=== PATIENT | female | born 1995 | race Caucasian/White ===

== ENCOUNTER → 2016-04-23 | Outpatient (CLI) | payer BC ==
[~2016-04-23] MED LIST: Gadobutrol 10 mMOL/10 ML SDV IVPUSH STA; Gadobutrol 7.5 mMOL/7.5 ML SDV IVPUSH STA; Iopamidol 612 MG/ML 50 ML SDV IARTIC STA
--- NOTE | 2016-04-23 14:49 | CR ---
EXAMINATION: Fluoro guided right shoulder arthrogram. HISTORY: Shoulder pain. 719.41. TECHNIQUE/PROCEDURE: Written informed consent was obtained from the patient . Patient is not on aspi rin or other blood thinners. The site of the anterior rotator interval is marked under fluoroscopy. Under aseptic conditions usin g 1% lidocaine as local anesthesia 25-gauge needle was introduced into the joint space. A small amou nt of contrast test dose was injected which freely flowed into the joint space. Afterwards, 15 cc o f cocktail consisting of saline, gadolinium and local lidocaine including CT contrast was administer ed without difficulty. There was no passage of the contrast into the subacromial space. Most of the contrast is seen within the joint space and sub coracoid bursal region. IMPRESSION: Successful Fluoro guided right shoulder arthrogram without evidence for high-grade rotat or cuff tear.
--- NOTE | 2016-04-23 16:17 | MR ---
EXAMINATION: MRI arthrogram of the right shoulder HISTORY: Pain COMPARISON: Radiographs dated 04/04/2016 TECHNIQUE: Multiplanar and multisequence images obtained of the right shoulder following the intra-a rticular administration of diluted Gadavist. FINDINGS: The acromion is flat with a slight hook. The acromioclavicular joint appears normal. No s ignificant subacromial or subdeltoid fluid. The supraspinatus and infraspinatus tendons appear intac t. The long head biceps tendon is present within the bicipital groove with intact overlying subscapu faith tendon. The teres minor tendon appears normal. No muscular atrophy. The articular surfaces mirlande ear preserved. The glenoid labrum appears rounded however intact. Contrast is noted inferior to the joint with an indistinct humeral attachment of the inferior glenohumeral ligament. No abnormal bone marrow signal. IMPRESSION: 1. Humeral avulsion of the inferior glenohumeral ligament.
== END | disposition home or self-care (01) ==
LOC: MW.DI 10:23
PROVIDERS: ATTEND Orthopaedic Surgery
DX: S43.491A Other sprain of right shoulder joint, initial encounter (principal); M25.511 Pain in right shoulder
CPT/HCPCS: 23350; 73223; 77002; A9585; Q9967

== ENCOUNTER 2016-05-19 13:30 | Emergency (ER) | payer OTHER, BC ==
--- NOTE | 2016-05-19 13:56 | EDM.PDOC ---
ED HPI GENERAL MEDICAL PROBLEM - General Chief Complaint: Body Fluid Exposure Stated Complaint: EXPOSURE Time Seen by Provider: 05/19/16 13:43 - History of Present Illness INITIAL COMMENTS - FREE TEXT/NARRATIVE: HISTORY AND PHYSICAL: History of present illness: Patient is 21-year-old white female who presents with a concern of body fluid exposure this was in the form of blood and it splashed in her face no reported needlestick or other concern patient source protocol actuated Review of systems: As per history of present illness and below otherwise all systems reviewed and negative. Past medical history: As per history of present illness and as reviewed below otherwise noncontributory. Surgical history: As per history of present illness and as reviewed below otherwise noncontributory. Social history: No reported history of drug or alcohol abuse. Family history: As per history of present illness and as reviewed below otherwise noncontributory. Physical exam: Deferred Diagnostics: Per protocol Therapeutics: None Impression: #1 body fluid exposure Definitive disposition and diagnosis as appropriate pending reevaluation and review of above. - Related Data Allergies Allergy/AdvReac Type Severity Reaction Status Date / Time clindamycin Allergy UNKNOWN Verified 06/15/13 15:36 sulfamethoxazole Allergy UNKNOWN Verified 06/15/13 15:36 [From Bactrim] trimethoprim [From Bactrim] Allergy UNKNOWN Verified 06/15/13 15:36 Home Meds: Home Meds . [No Known Home Meds] 12/22/15 [History] Past Medical History - Past Health History Medical/Surgical History: Denies Medical/Surgical History Social & Family History - Tobacco Use Smoking Status *Q: Unknown Ever Smoked - Caffeine Use Caffeine Use: Reports: None - Recreational Drug Use Recreational Drug Use: No ED ROS GENERAL - Review of Systems Review Of Systems: ROS reveals no pertinent complaints other than HPI. ED EXAM, GENERAL - Physical Exam Exam: See Below (See dictation) Course - Orders/Labs/Meds Orders: Active Orders 24 hr Category Date Time Status HEPATITIS B SURFACE ANTIGEN [REF] Stat Lab 05/19/16 13:46 Ordered HEPATITIS B VIR DNA QUANT PCR [REF] Stat Lab 05/19/16 13:46 Ordered HEPATITIS C AB [REF] Stat Lab 05/19/16 13:46 Ordered HIV12 AG/AB 4TH GEN [CHEM] Stat Lab 05/19/16 13:46 Ordered Departure - Departure Time of Disposition: 13:55 Disposition: Home, Self-Care 01 Condition: good Clinical Impression: Patient exposure to body fluids Forms: ED Department Discharge Additional Instructions: The following information is given to patients seen in the emergency department who are being discharged to home. This information is to outline your options for follow-up care. We provide all patients seen in our emergency department with a follow-up referral. The need for follow-up, as well as the timing and circumstances, are variable depending upon the specifics of your emergency department visit. If you don't have a primary care physician on staff, we will provide you with a referral. We always advise you to contact your personal physician following an emergency department visit to inform them of the circumstance of the visit and for follow-up with them and/or the need for any referrals to a consulting specialist. The emergency department will also refer you to a specialist when appropriate. This referral assures that you have the opportunity for followup care with a specialist. All of these measure are taken in an effort to provide you with optimal care, which includes your followup. Under all circumstances we always encourage you to contact your private physician who remains a resource for coordinating your care. When calling for followup care, please make the office aware that this follow-up is from your recent emergency room visit. If for any reason you are refused follow-up, please contact the [facility] emergency department at and asked to speak to the emergency department charge nurse. Follow up primary medical doctor/employee health - My Orders Last 24 Hours: My Active Orders 05/19/16 13:46 HEPATITIS B SURFACE ANTIGEN [REF] Stat HEPATITIS B VIR DNA QUANT PCR [REF] Stat HEPATITIS C AB [REF] Stat HIV12 AG/AB 4TH GEN [CHEM] Stat - Assessment/Plan Last 24 Hours: My Active Orders 05/19/16 13:46 HEPATITIS B SURFACE ANTIGEN [REF] Stat HEPATITIS B VIR DNA QUANT PCR [REF] Stat HEPATITIS C AB [REF] Stat HIV12 AG/AB 4TH GEN [CHEM] Stat
[2016-05-19 15:52] VITALS: BP 115/69
== END 2016-05-19 14:19 | disposition home or self-care (01) ==
LOC: MW.ED 13:30
DX: Z77.21 Contact with and (suspected) exposure to potentially hazardous body fluids (principal); Z88.1 Allergy status to other antibiotic agents; Z88.2 Allergy status to sulfonamides
CPT/HCPCS: 36415; 86706; 86803; 87389; 99283

== ENCOUNTER 2021-05-10 13:07 | Inpatient (IN) | payer BC ==
[2021-05-10] MEDS ORDERED: Water For Irrigation,Sterile 1,000 ML Container IRR PRN (13:24)
[2021-05-10] MEDS ORDERED: Sodium Chloride 0.9% 2.5 ML Syringe FLUSH PRN (13:24)
[2021-05-10] MEDS ORDERED: Methylergonovine 0.2 MG/1 ML Amp IM PRN (13:24)
[2021-05-10] MEDS ORDERED: Carboprost Tromethamine 250 MCG/1 ML Amp IM PRN (13:24)
[2021-05-10] MEDS ORDERED: Lidocaine 1% 50 ML MDV INJECT PRN (13:24)
[2021-05-10] MEDS ORDERED: Misoprostol 200 MCG Tab PO PRN (13:24)
[2021-05-10] MEDS ORDERED: Terbutaline 1 MG/ML SDV SUBCUT PRN (13:24)
[2021-05-10] MEDS ORDERED: Sodium Chloride 0.9% 20 ML SDV IV PRN (13:24)
[2021-05-10] MEDS ORDERED: Misoprostol 25 MCG (1/4 of 100 MCG) Tab VAG PRN ×2 (13:24)
[2021-05-10] MEDS ORDERED: Sodium Chloride 0.9% 10 ML Syringe FLUSH PRN (13:24)
[2021-05-10] MEDS ORDERED: Butorphanol 1 MG/ML SDV IVPUSH PRN (13:24)
[2021-05-10] MEDS ORDERED: Tranexamic Acid 1,000 MG in Sodium Chloride 0.9% 100 ML IV PRN (13:24)
[2021-05-10] MEDS ORDERED: Oxytocin/0.9 % Sodium Chloride 30 UNIT/500 ML BAG IV SCH ×2 (13:30)
[2021-05-10] MEDS: Lactated Ringers 1,000 ML IV SCH ×2 (14:19→21:39)
[2021-05-10] MEDS ORDERED: Ampicillin 2 GM in Sodium Chloride 0.9% 100 ML IV ONE (14:30)
[2021-05-10] MEDS ORDERED: ePHEDrine 50 MG/ML SDV IVPUSH PRN (16:52)
[2021-05-10] MEDS ORDERED: Ropivacaine 200 MG in Premix Bag 1 BAG EPIDUR SCH (17:00)
[2021-05-10] MEDS: Ampicillin 1 GM in Sodium Chloride 0.9% 50 ML IV SCH ×2 (18:30→22:30)
[2021-05-10] MEDS: Ondansetron 4 MG/2 ML SDV IVPUSH PRN (21:00)
[2021-05-10] MEDS ORDERED: Ampicillin 1 GM Vial ONE (21:08)
[2021-05-10] MEDS ORDERED: Lidocaine 2% with EPINEPHrine 1:200,000 20 ML SDV ONE (21:25)
[2021-05-10] MEDS: ePHEDrine 50 MG/ML SDV IVPUSH PRN ×2 (22:27→23:55)
[2021-05-11] MEDS: ePHEDrine 50 MG/ML SDV IVPUSH PRN (00:01)
[2021-05-11] MEDS: Ondansetron 4 MG/2 ML SDV IVPUSH PRN (00:11)
[2021-05-11] MEDS ORDERED: Ondansetron 4 MG/2 ML SDV ONE (01:22)
[2021-05-11] MEDS ORDERED: Oxytocin 10 Units/1 ML SDV ONE (01:39)
[2021-05-11] MEDS ORDERED: Lidocaine 2% with EPINEPHrine 1:200,000 20 ML SDV ONE (01:42)
[2021-05-11] MEDS ORDERED: fentaNYL 100 MCG/2 ML SDV ONE (01:45)
[2021-05-11] MEDS ORDERED: Midazolam 1 MG/ML 2 ML SDV ONE (01:51)
[2021-05-11] MEDS ORDERED: Octyl 2-Cyanoacrylate 1 Tube ONE (01:53)
[2021-05-11] MEDS ORDERED: Ketorolac 30 MG/ML SDV ONE (01:59)
[2021-05-11] MEDS ORDERED: Naloxone 0.4 MG/ML SDV IVPUSH PRN (02:27)
[2021-05-11] MEDS ORDERED: Metoclopramide 10 MG/2 ML SDV IVPUSH PRN (02:27)
[2021-05-11] MEDS ORDERED: Ondansetron 4 MG/2 ML SDV IVPUSH PRN ×2 (02:27→02:39)
[2021-05-11] MEDS ORDERED: Albuterol 0.083% 2.5 MG/3 ML Neb Soln NEB PRN (02:27)
[2021-05-11] MEDS ORDERED: ePHEDrine 50 MG/ML SDV IVPUSH PRN (02:27)
[2021-05-11] MEDS ORDERED: HYDROmorphone 1 MG/ML Syringe IVPUSH PRN (02:27)
[2021-05-11] MEDS ORDERED: Morphine 4 MG/ML VIAL IVPUSH PRN (02:27)
[2021-05-11] MEDS ORDERED: fentaNYL 100 MCG/2 ML SDV IVPUSH PRN (02:27)
[2021-05-11] MEDS ORDERED: Acetaminophen 1,000 MG in Premix Bag 1 BAG IV PRN (02:28)
[2021-05-11] MEDS ORDERED: Acetaminophen/oxyCODONE 325-5 MG Tab PO PRN (02:39)
[2021-05-11] MEDS ORDERED: Misoprostol 200 MCG Tab RECTAL PRN (02:39)
[2021-05-11] MEDS ORDERED: Tranexamic Acid 1,000 MG in Sodium Chloride 0.9% 100 ML IV PRN (02:39)
[2021-05-11] MEDS ORDERED: diphenhydrAMINE 50 MG/ML SDV IVPUSH PRN (02:39)
[2021-05-11] MEDS ORDERED: Methylergonovine 0.2 MG/1 ML Amp IM PRN (02:39)
[2021-05-11] MEDS ORDERED: Oxytocin 10 Units/1 ML SDV IM PRN (02:39)
[2021-05-11] MEDS ORDERED: Bisacodyl 10 MG Supp RECTAL PRN (02:39)
[2021-05-11] MEDS ORDERED: Lactated Ringers 1,000 ML IV SCH (02:45)
[2021-05-11] MEDS: Ketorolac 30 MG/ML SDV IVPUSH SCH ×3 (08:27→19:59)
[2021-05-11] MEDS: Docusate Sodium 100 MG Cap PO SCH ×2 (08:28→19:59)
[2021-05-11] MEDS ORDERED: hydrOXYzine Pamoate 25 MG Cap PO PRN (14:46)
[2021-05-11] MEDS ORDERED: Benzocaine/Menthol 20%-0.5% Spray 78 GM Cannister TOP PRN (22:04)
[2021-05-11] MEDS ORDERED: Witch Hazel Medicated Pads 40/Jar TOP PRN (22:04)
[2021-05-11] MEDS ORDERED: Benzocaine/Menthol 20%-0.5% Spray 78 GM Cannister ONE (22:09)
[2021-05-11] MEDS ORDERED: Witch Hazel Medicated Pads 40/Jar TOP ONE (22:09)
[2021-05-11] MEDS: Lanolin 100% Cream 7 GM Tube TOP PRN (22:13)
[2021-05-11] MEDS: Acetaminophen/oxyCODONE 325-5 MG Tab PO PRN (22:16)
[2021-05-12] MEDS: Ketorolac 30 MG/ML SDV IVPUSH SCH (01:59)
[2021-05-12] MEDS: Acetaminophen/oxyCODONE 325-5 MG Tab PO PRN (05:08)
[2021-05-12] MEDS ORDERED: Ibuprofen 800 MG Tab PO PRN (08:00)
[2021-05-12] MEDS: Docusate Sodium 100 MG Cap PO SCH (09:05)
[2021-05-12 09:40] VITALS: BP 98/59; PULSE 84
[2021-05-12] MEDS: Lanolin 100% Cream 7 GM Tube TOP PRN (13:09)
== END 2021-05-12 12:37 | disposition home or self-care (01) | DRG 540 ==
LOC: MW.OBCHECK 13:07 → MW.OB 13:11 → OBSVTOIN 05-11 01:36 → MW.OB 05-11 04:44
PROVIDERS: ADMIT Obstetrics & Gynecology; ATTEND Obstetrics & Gynecology
PROC: 10D00Z1 Extraction of Products of Conception, Low, Open Approach (ICD-10-PCS; principal; 2021-05-11)
PROC: 10907ZC Drainage of Amniotic Fluid, Therapeutic from Products of Conception, Via Natural or Artificial Opening (ICD-10-PCS; 2021-05-11)
DX: O40.3XX0 Polyhydramnios, third trimester, not applicable or unspecified (principal); O62.1 Secondary uterine inertia; O99.824 Streptococcus B carrier state complicating childbirth; O99.344 Other mental disorders complicating childbirth; F41.9 Anxiety disorder, unspecified; O99.284 Endocrine, nutritional and metabolic diseases complicating childbirth; O98.32 Other infections with a predominantly sexual mode of transmission complicating childbirth; A60.09 Herpesviral infection of other urogenital tract; O77.0 Labor and delivery complicated by meconium in amniotic fluid; E03.9 Hypothyroidism, unspecified; O76 Abnormality in fetal heart rate and rhythm complicating labor and delivery; O75.89 Other specified complications of labor and delivery; K21.9 Gastro-esophageal reflux disease without esophagitis; Z3A.39 39 weeks gestation of pregnancy; Z37.0 Single live birth
CPT/HCPCS: 36415; 51702; 59025; 82803; 85014; 85018; 85027; 86592; 86850; 86900; 86901; A9270-GY; J0131; J0290; J1885; J2250; J2370; J2405; J2590; J3010; J3105; J7120; U0002